=== PATIENT | male | born 1970 | race Caucasian/White ===

== ENCOUNTER 2023-06-02 06:29 | Day surgery (SDC) | payer BC ==
[~2023-06-02 06:29] MED LIST: Acetaminophen 1,000 MG in Premix Bag 1 BAG IV SCH; ceFAZolin 2 GM in Sodium Chloride 0.9% 50 ML IV ONE
[2023-06-02] MEDS: Pregabalin 75 MG Cap PO SCH (06:40)
[2023-06-02] MEDS ORDERED: Ondansetron 4 MG/2 ML SDV ONE (06:57)
[2023-06-02] MEDS ORDERED: Sugammadex Sodium 200 MG/2 ML VIAL IV ONE (06:57)
[2023-06-02] MEDS ORDERED: Rocuronium Bromide 50 MG/5 ML Syringe ONE ×3 (06:57→09:33)
[2023-06-02] MEDS ORDERED: dexmedeTOMIDine HCl 200 MCG/2 ML SDV ONE (06:57)
[2023-06-02] MEDS ORDERED: Lidocaine 2% 5 ML SDV ONE (06:57)
[2023-06-02] MEDS ORDERED: Dexamethasone 4 MG/ML 5 ML MDV ONE (06:57)
[2023-06-02] MEDS ORDERED: Ketorolac 30 MG/ML SDV ONE (06:57)
[2023-06-02] MEDS ORDERED: Water For Injection, Sterile 20 ML ONE (06:58)
[2023-06-02] MEDS ORDERED: Morphine 10 MG/ML SDV ONE (06:59)
[2023-06-02] MEDS ORDERED: fentaNYL 100 MCG/2 ML SDV ONE (06:59)
[2023-06-02] MEDS ORDERED: Magnesium Sulfate (4.06 MEQ/ML) 5 GM/10 ML SDV ONE (06:59)
[2023-06-02] MEDS ORDERED: Ropivacaine 0.5% 5 MG/ML 30 ML SDV ONE (07:04)
[2023-06-02] MEDS ORDERED: propofoL 100 ML ONE (07:04)
[2023-06-02] MEDS: Lactated Ringers 1,000 ML IV SCH (07:11)
[2023-06-02] MEDS ORDERED: fentaNYL 50 MCG/ML SDV IVPUSH PRN (07:22)
[2023-06-02] MEDS ORDERED: Ondansetron 4 MG/2 ML SDV IVPUSH PRN (07:22)
[2023-06-02] MEDS ORDERED: Albuterol 0.083% 2.5 MG/3 ML Neb Soln NEB PRN (07:22)
[2023-06-02] MEDS ORDERED: HYDROmorphone 1 MG/ML Syringe IVPUSH PRN (07:22)
[2023-06-02] MEDS ORDERED: Metoclopramide 10 MG/2 ML SDV IVPUSH PRN (07:22)
[2023-06-02] MEDS ORDERED: Naloxone 0.4 MG/ML SDV IVPUSH PRN (07:22)
[2023-06-02] MEDS ORDERED: Morphine 2 MG/ML SYRINGE IVPUSH PRN (07:22)
[2023-06-02] MEDS ORDERED: droPERidol 5 MG/2 ML SDV IVPUSH PRN (07:22)
[2023-06-02] MEDS ORDERED: Bupivacaine 0.5% 30 ML SDV ONE (07:27)
[2023-06-02] MEDS ORDERED: propofoL 50 ML ONE (09:21)
[2023-06-02] MEDS ORDERED: ceFAZolin 1 GM Vial ONE ×2 (09:26→11:50)
== END 2023-06-02 12:35 | disposition home or self-care (01) ==
LOC: MW.SDS 06:29
PROVIDERS: ATTEND Surgery
DX: K40.91 Unilateral inguinal hernia, without obstruction or gangrene, recurrent (principal); D17.6 Benign lipomatous neoplasm of spermatic cord; M19.90 Unspecified osteoarthritis, unspecified site; E78.1 Pure hyperglyceridemia
CPT/HCPCS: 49651; 64488; 82947; A9270; C1781; J0131; J0665; J0690; J1100; J1885; J2270; J2704; J2795; J3010; J3475; J3490; J7120; 00830; J2405

== ENCOUNTER 2024-08-02 06:33 | Day surgery (SDC) | payer BC ==
[2024-08-02] MEDS: Lactated Ringers 1,000 ML IV SCH (06:19)
[~2024-08-02 06:33] MED LIST changes: -Acetaminophen 1,000 MG in Premix Bag 1 BAG IV SCH; -ceFAZolin 2 GM in Sodium Chloride 0.9% 50 ML IV ONE; +ceFAZolin 2 GM in Water For Injection, Sterile 20 ML IVPUSH ONE
[2024-08-02] MEDS ORDERED: Bupivacaine 0.5% 30 ML SDV ONE (07:09)
[2024-08-02] MEDS ORDERED: Lidocaine 1% 20 ML MDV ONE (07:10)
[2024-08-02] MEDS: Acetaminophen 500 MG Tab PO ONE (07:19)
[2024-08-02] MEDS: Pregabalin 75 MG Cap PO SCH (07:19)
[2024-08-02] MEDS ORDERED: Propofol 200 MG/20 ML SDV ONE (07:31)
[2024-08-02] MEDS ORDERED: Rocuronium Bromide 50 MG/5 ML Syringe ONE (07:32)
[2024-08-02] MEDS ORDERED: fentaNYL 250 MCG/5 ML SDV ONE (07:32)
[2024-08-02] MEDS ORDERED: Ondansetron 4 MG/2 ML SDV IVPUSH PRN (07:43)
[2024-08-02] MEDS ORDERED: Albuterol 0.083% 2.5 MG/3 ML Neb Soln NEB PRN (07:43)
[2024-08-02] MEDS ORDERED: HYDROmorphone 1 MG/ML Syringe IVPUSH PRN (07:43)
[2024-08-02] MEDS ORDERED: Phenylephrine HCl In 0.9% NaCl 1 MG/10 ML Syringe IVPUSH PRN (07:43)
[2024-08-02] MEDS ORDERED: Morphine 2 MG/ML SYRINGE IVPUSH PRN (07:43)
[2024-08-02] MEDS ORDERED: Naloxone 0.4 MG/ML SDV IVPUSH PRN (07:43)
[2024-08-02] MEDS ORDERED: fentaNYL 50 MCG/ML SDV IVPUSH PRN (07:43)
[2024-08-02] MEDS ORDERED: Metoclopramide 10 MG/2 ML SDV IVPUSH PRN (07:43)
[2024-08-02] MEDS ORDERED: ceFAZolin 2 GM Vial ONE (08:10)
[2024-08-02] MEDS ORDERED: ePHEDrine 50 MG/ML SDV ONE (08:15)
[2024-08-02] MEDS ORDERED: Sugammadex Sodium 200 MG/2 ML VIAL IV ONE (09:25)
[2024-08-02] MEDS ORDERED: Ondansetron 4 MG/2 ML SDV ONE (09:25)
[2024-08-02] MEDS ORDERED: Lidocaine 2% 11 ML Jelly Filled Syringe ONE (09:48)
== END 2024-08-02 11:50 | disposition home or self-care (01) ==
LOC: MW.SDS 06:33
PROVIDERS: ATTEND Surgery
DX: C77.9 Secondary and unspecified malignant neoplasm of lymph node, unspecified (principal); C09.9 Malignant neoplasm of tonsil, unspecified; E78.1 Pure hyperglyceridemia; Z79.899 Other long term (current) drug therapy
CPT/HCPCS: 36561; 43246; 71045; 76000; A9270; J0665; J0690; J1642; J2405; J2704; J3010; J7120; 00532; C1788; J3490

== ENCOUNTER 2024-12-11 12:06 | Inpatient (IN) | payer BC ==
[2024-12-11 12:41] LABS: MEAN PLATELET VOLUME 10.0 fL (9.4-12.4); NRBC ABSOLUTE 0.00 K/uL (0.00-0.02); NRBC PERCENT 0.0 /100WBC (0.0-0.2); PLATELET COUNT,PLT 148 K/uL (150-400); RED BLOOD CELL COUNT 2.98 M/uL (4.52-5.90); WHITE BLOOD CELL COUNT,WBC 7.70 K/uL (3.9-11.3)
[2024-12-11 13:04] LABS: LACTIC ACID 1.1 mmol/L (0.4-2.0)
[2024-12-11 13:08] LABS: A/G RATIO 1.2 (0.9-1.6); ALANINE AMINOTRANSFERASE,ALT 11.0 IU/L (14-63); ASPARTATE AMNIOTRANSFERASE,AST 11.0 IU/L (15-37); BILIRUBIN TOTAL 0.3 mg/dL (0.2-1.0); BLOOD UREA NITROGEN,BUN 17.0 mg/dL (7.0-18.0); CARBON DIOXIDE,CO2 26.0 mmol/L (21.0-32.0); CHLORIDE,CL 103.0 mmol/L (98-107); CREATININE 0.8 mg/dL (0.8-1.3); EST CRCL DRUG DOSING (CG) 103.54 mL/min; GLUCOSE RANDOM 120.0 mg/dL (74-106); POTASSIUM,K 3.8 mmol/L (3.5-5.1); PRO B-TYPE NATRIUR PEPT,BNPPRO 334.0 pg/mL (0-125); PROTEIN TOTAL,TP 5.6 g/dL (6.4-8.2); SODIUM,NA 138.0 mmol/L (136-148)
[2024-12-11 13:10] LABS: ESTIMATED GFR 104.0 mL/min (>60)
[2024-12-11 13:13] LABS: SEG NEUTROPHILS ABSOLUTE MAN 5.08 K/uL (1.80-7.70); SEG NEUTROPHILS PERCENT MAN 66 % (41-71)
[2024-12-11 13:14] LABS: BAND ABSOLUTE MAN 1.08; BAND PERCENT MAN 14 %; LYMPHOCYTES ABSOLUTE MAN 0.54 K/uL (1.00-4.80); LYMPHOCYTES PERCENT MAN 7 % (24-44); METAMYELOCYTE ABSOLUTE MAN 0.08; METAMYELOCYTE PERCENT MAN 1 %; MONOCYTES ABSOLUTE MAN 0.92 K/uL (0.00-0.80); MONOCYTES PERCENT MAN 12 % (0-8)
[2024-12-11] MEDS: Norepinephrine Bit/D5W Premix 4 MG/250 ML BAG IV SCH ×2 (13:58→18:21)
[2024-12-11] MEDS ORDERED: Sodium Chloride 0.9% 2.5 ML Syringe FLUSH PRN (15:12)
[2024-12-11] MEDS ORDERED: Ondansetron 4 MG/2 ML SDV IVPUSH PRN (15:12)
[2024-12-11] MEDS ORDERED: Sodium Chloride 0.9% 10 ML Syringe FLUSH PRN (15:12)
[2024-12-11] MEDS: Heparin Sodium 5,000 Units/ML Vial SUBCUT SCH (16:19)
[2024-12-11] MEDS: Nystatin Susp 100,000 Unit/ML 5 ML UD Cup PO SCH (17:10)
[2024-12-11 20:38] LABS: APPEARANCE,URINE CLEAR; GLUCOSE,URINE NEGATIVE (NEGATIVE); OCCULT BLOOD,URINE NEGATIVE (NEGATIVE)
[2024-12-12 05:59] LABS: BASOPHILS ABSOLUTE AUTO 0.01 K/uL (0.00-0.20); BASOPHILS PERCENT AUTO 0.1 % (0.0-1.0); EOSINOPHILS ABSOLUTE AUTO 0.02 K/uL (0.00-0.45); EOSINOPHILS PERCENT AUTO 0.3 % (0.0-6.0); IMMATURE GRAN ABSOLUTE AUTO 0.04 K/uL (0.00-0.05); IMMATURE GRAN PERCENT AUTO 0.5 % (0.0-0.4); LYMPHOCYTES ABSOLUTE AUTO 0.40 K/uL (1.00-4.80); LYMPHOCYTES PERCENT AUTO 5.3 % (24.0-44.0); MEAN PLATELET VOLUME 10.1 fL (9.4-12.4); MONOCYTES ABSOLUTE AUTO 0.68 K/uL (0.00-0.80); MONOCYTES PERCENT AUTO 9.0 % (0.0-8.0); NEUTROPHILS ABSOLUTE AUTO 6.37 K/uL (1.80-7.70); NEUTROPHILS PERCENT AUTO 84.8 % (41.0-71.0); NRBC ABSOLUTE 0.00 K/uL (0.00-0.02); NRBC PERCENT 0.0 /100WBC (0.0-0.2); PLATELET COUNT,PLT 135 K/uL (150-400); RED BLOOD CELL COUNT 2.59 M/uL (4.52-5.90); WHITE BLOOD CELL COUNT,WBC 7.52 K/uL (3.9-11.3)
[2024-12-12 06:26] LABS: A/G RATIO 1.0 (0.9-1.6); ALANINE AMINOTRANSFERASE,ALT 12.0 IU/L (14-63); ASPARTATE AMNIOTRANSFERASE,AST 9.0 IU/L (15-37); BILIRUBIN TOTAL 0.4 mg/dL (0.2-1.0); BLOOD UREA NITROGEN,BUN 12.0 mg/dL (7.0-18.0); CARBON DIOXIDE,CO2 24.7 mmol/L (21.0-32.0); CHLORIDE,CL 107.0 mmol/L (98-107); CREATININE 0.7 mg/dL (0.8-1.3); EST CRCL DRUG DOSING (CG) 116.67 mL/min; GLUCOSE RANDOM 101.0 mg/dL (74-106); POTASSIUM,K 3.8 mmol/L (3.5-5.1); PROTEIN TOTAL,TP 4.7 g/dL (6.4-8.2); SODIUM,NA 141.0 mmol/L (136-148)
[2024-12-12 06:42] LABS: ESTIMATED GFR 108.0 mL/min (>60)
[2024-12-13 06:30] LABS: BASOPHILS ABSOLUTE AUTO 0.01 K/uL (0.00-0.20); BASOPHILS PERCENT AUTO 0.2 % (0.0-1.0); EOSINOPHILS ABSOLUTE AUTO 0.02 K/uL (0.00-0.45); EOSINOPHILS PERCENT AUTO 0.4 % (0.0-6.0); IMMATURE GRAN ABSOLUTE AUTO 0.02 K/uL (0.00-0.05); IMMATURE GRAN PERCENT AUTO 0.4 % (0.0-0.4); LYMPHOCYTES ABSOLUTE AUTO 0.49 K/uL (1.00-4.80); LYMPHOCYTES PERCENT AUTO 9.5 % (24.0-44.0); MEAN PLATELET VOLUME 10.5 fL (9.4-12.4); MONOCYTES ABSOLUTE AUTO 0.50 K/uL (0.00-0.80); MONOCYTES PERCENT AUTO 9.7 % (0.0-8.0); NEUTROPHILS ABSOLUTE AUTO 4.14 K/uL (1.80-7.70); NEUTROPHILS PERCENT AUTO 79.8 % (41.0-71.0); NRBC ABSOLUTE 0.00 K/uL (0.00-0.02); NRBC PERCENT 0.0 /100WBC (0.0-0.2); PLATELET COUNT,PLT 123 K/uL (150-400); RED BLOOD CELL COUNT 2.61 M/uL (4.52-5.90); WHITE BLOOD CELL COUNT,WBC 5.18 K/uL (3.9-11.3)
[2024-12-13 06:51] LABS: BLOOD UREA NITROGEN,BUN 7.0 mg/dL (7.0-18.0); CARBON DIOXIDE,CO2 24.5 mmol/L (21.0-32.0); CHLORIDE,CL 107.0 mmol/L (98-107); CREATININE 0.5 mg/dL (0.8-1.3); EST CRCL DRUG DOSING (CG) 158.67 mL/min; GLUCOSE RANDOM 89.0 mg/dL (74-106); PHOSPHORUS 2.9 mg/dL (2.6-4.7); POTASSIUM,K 3.9 mmol/L (3.5-5.1); SODIUM,NA 139.0 mmol/L (136-148)
[2024-12-13 06:55] LABS: ESTIMATED GFR 120.0 mL/min (>60)
[2024-12-13 08:07] LABS: BORDETELLA PARAPERT IS1001 Not Detected (Not Detected)
[2024-12-13] MEDS: Magnesium Sulfate 2 GM/50 mL 2 GM in Premix Bag 1 BAG IV ONE (09:15)
[2024-12-14 07:01] LABS: BASOPHILS ABSOLUTE AUTO 0.01 K/uL (0.00-0.20); BASOPHILS PERCENT AUTO 0.4 % (0.0-1.0); EOSINOPHILS ABSOLUTE AUTO 0.03 K/uL (0.00-0.45); EOSINOPHILS PERCENT AUTO 1.1 % (0.0-6.0); IMMATURE GRAN ABSOLUTE AUTO 0.02 K/uL (0.00-0.05); IMMATURE GRAN PERCENT AUTO 0.7 % (0.0-0.4); LYMPHOCYTES ABSOLUTE AUTO 0.45 K/uL (1.00-4.80); LYMPHOCYTES PERCENT AUTO 15.8 % (24.0-44.0); MEAN PLATELET VOLUME 10.3 fL (9.4-12.4); MONOCYTES ABSOLUTE AUTO 0.33 K/uL (0.00-0.80); MONOCYTES PERCENT AUTO 11.6 % (0.0-8.0); NEUTROPHILS ABSOLUTE AUTO 2.00 K/uL (1.80-7.70); NEUTROPHILS PERCENT AUTO 70.4 % (41.0-71.0); NRBC ABSOLUTE 0.00 K/uL (0.00-0.02); NRBC PERCENT 0.0 /100WBC (0.0-0.2); PLATELET COUNT,PLT 119 K/uL (150-400); RED BLOOD CELL COUNT 2.60 M/uL (4.52-5.90); WHITE BLOOD CELL COUNT,WBC 2.84 K/uL (3.9-11.3)
[2024-12-14 07:22] LABS: BLOOD UREA NITROGEN,BUN 7.0 mg/dL (7.0-18.0); CARBON DIOXIDE,CO2 26.6 mmol/L (21.0-32.0); CHLORIDE,CL 109.0 mmol/L (98-107); CREATININE 0.6 mg/dL (0.8-1.3); EST CRCL DRUG DOSING (CG) 132.22 mL/min; GLUCOSE RANDOM 84.0 mg/dL (74-106); POTASSIUM,K 3.8 mmol/L (3.5-5.1); SODIUM,NA 143.0 mmol/L (136-148)
[2024-12-14 07:23] LABS: ESTIMATED GFR 113.0 mL/min (>60)
== END 2024-12-14 13:03 | disposition home or self-care (01) | DRG 720 ==
LOC: MW.ED 12:06 → MW.ICU 15:27 → MW.MS 12-13 14:00
PROVIDERS: ADMIT Internal Medicine; ATTEND Internal Medicine
DX: A41.9 Sepsis, unspecified organism (principal); R65.21 Severe sepsis with septic shock; J18.9 Pneumonia, unspecified organism; F17.200 Nicotine dependence, unspecified, uncomplicated; D64.9 Anemia, unspecified; B37.0 Candidal stomatitis; E86.0 Dehydration; D69.6 Thrombocytopenia, unspecified; M19.90 Unspecified osteoarthritis, unspecified site; Z85.828 Personal history of other malignant neoplasm of skin; Z98.890 Other specified postprocedural states; Z93.1 Gastrostomy status
CPT/HCPCS: 36415; 80048; 80053; 81003; 83605; 83735; 83880; 84100; 84484; 85025; 87040; 87428-QW; 87486; 87581; 87633; 87641; 87899; 93005; 93010; 96361; 96365; 96368; 99285; 99285-25; A9270-GY; J0456; J0692; J1644; J2185; J3475; J7030; J7050